=== PATIENT | male | born 1960 | race Two or more races ===

== ENCOUNTER 2024-04-14 10:51 | Emergency (ER) | payer OTHER ==
[~2024-04-14] VITALS: Ht 160 cm; Wt 81.9 kg
[2024-04-14] MEDS ORDERED: APIX5TAB PO (12:43)
[2024-04-14 13:09] VITALS: BP 138/88; PULSE 88; RESP 18; TEMP 98.7; O2SAT 98
== END 2024-04-14 13:10 | disposition home or self-care (01) ==
LOC: ER 10:51
DX: I82.402 Acute embolism and thrombosis of unspecified deep veins of left lower extremity (principal); I25.2 Old myocardial infarction; E11.9 Type 2 diabetes mellitus without complications; Z90.49 Acquired absence of other specified parts of digestive tract; Z98.61 Coronary angioplasty status
CPT/HCPCS: 93971